=== PATIENT | female | born 1970 | race Caucasian/White ===

== ENCOUNTER → 2017-01-17 | Outpatient (CLI) | payer OTHER ==
[~2017-01-17] MED LIST: ACET250T3 PO; ASP81CT PO; BUPR300T PO; CHOL100011 PO; DEXL60CA PO; DEXL60CA5 PO; EST.1TD TOP; ESTR1TAB24 PO; HYDR-3583 PO; IBP600T1 PO; KRIL1CAP2 PO; LSRT50T PO; OMEG1CAP24 PO; OMEP1CAP18 PO; OMG1KC PO; PANT40TA PO; POTA8TAB6 PO; SCR1T PO; TRIA1TAB5 PO; VIT D; VITA150T PO
--- NOTE | 2017-01-20 13:35 | Diagnostic Imaging Report ---
Bilateral screening mammogram. The current study was also evaluated with a Computer Aided Detection (CAD) system. INDICATION: Screening. No current complaints stated on the questionnaire. COMPARISON: 12/04/2015 FINDINGS: The breasts are composed of heterogeneously dense parenchyma which may decrease mammographic sensitivity. Benign-appearing calcifications are seen. There is no mass, architectural distortion, or suspicious cluster of calcification noted. Allowing for technique and positional differences, no suspicious change is seen. IMPRESSION: Dense breasts with no definite change. ACR BI-RADS Category 2: Benign findings. Result letter will be mailed to the patient. Note: At least 10% of breast cancer is not imaged by mammography. Dictated by: Dictated on workstation # [id number]
== END | disposition home or self-care (01) ==
LOC: RAD 09:17
PROVIDERS: ATTEND Family Medicine
DX: Z12.31 Encounter for screening mammogram for malignant neoplasm of breast (principal)
CPT/HCPCS: 77067

== ENCOUNTER → 2017-08-08 | Outpatient (CLI) | payer OTHER ==
--- NOTE | 2017-08-08 18:42 | Diagnostic Imaging Report ---
INDICATION: LAP-BAND 5 years ago. Abdominal pain. FINDINGS: 3 views show LAP-BAND present appearing in good position. The tubing appears intact to the injection port. Lung bases are clear. Stomach and small bowel are not distended. There is a moderate amount of stool in the right side of colon with very little stool through the transverse and descending colon. No organomegaly. No pathologic calcification. IMPRESSION: Moderate amount of stool in the ascending colon otherwise negative abdomen series. Dictated on workstation # [id number]
== END ==
LOC: RAD 11:55
PROVIDERS: ATTEND Nurse Practitioner Family
DX: R10.9 Unspecified abdominal pain (principal); Z98.84 Bariatric surgery status
CPT/HCPCS: 74020

== ENCOUNTER → 2018-03-19 | Outpatient (CLI) | payer OTHER ==
--- NOTE | 2018-03-19 12:52 | Diagnostic Imaging Report ---
INDICATION: Routine screening. Comparison is made with prior exams from 01/17/2017 and 12/04/2015. 2-D and 3-D bilateral screening mammography was performed. The current study was also evaluated with a Computer Aided Detection (CAD) system. FINDINGS: Both breasts remain heterogeneously dense, limiting the sensitivity of mammography. The parenchymal pattern is stable. No dominant mass or malignant-appearing microcalcifications are seen. The axillae are unremarkable. IMPRESSION: No mammographic features suspicious for malignancy are identified. ACR BI-RADS Category 1: Negative. Result letter will be mailed to the patient. Note: At least 10% of breast cancer is not imaged by mammography. Dictated by: Dictated on workstation # [id number]
== END ==
LOC: RAD 07:41
PROVIDERS: ATTEND Family Medicine
DX: Z12.31 Encounter for screening mammogram for malignant neoplasm of breast (principal)
CPT/HCPCS: 77067

== ENCOUNTER → 2019-11-26 | Outpatient (CLI) | payer OTHER ==
--- NOTE | 2019-11-26 09:11 | Diagnostic Imaging Report ---
PROCEDURE: MR imaging of the brain without contrast. TECHNIQUE: Multiplanar, multisequence MR imaging of the brain was performed without contrast. INDICATION: Intracranial hypertension. CORRELATION is made with prior MRI brain from 07/06/2012. The ventricular size and sulcal pattern are normal. Previously noted T2 hyperintense foci in bilateral frontal lobes appears similar to prior exam. These remain nonspecific. No acute intra-axial or extra-axial hemorrhage is detected. Corpus callosum is unremarkable. The sella and parasellar structures are unremarkable. No diffusion abnormality is identified to suggest acute ischemia. The normal expected flow-voids within the carotid siphons are noted. IMPRESSION: Stable noncontrast MRI of the brain when compared with the exam from 07/06/2012. T2 hyperintense foci of bilateral frontal lobes appears stable. No acute intracranial process is detected. Dictated by: Dictated on workstation # [id number]
== END ==
LOC: RAD 07:50
PROVIDERS: ATTEND Psychiatry & Neurology Neurology
DX: G93.2 Benign intracranial hypertension (principal)
CPT/HCPCS: 70551

== ENCOUNTER → 2020-05-19 | Outpatient (CLI) | payer OTHER ==
--- NOTE | 2020-05-19 14:56 | Diagnostic Imaging Report ---
INDICATION: Routine screening. Comparison is made to prior mammogram 03/19/2018 and 01/17/2017. 2-D and 3-D bilateral screening mammography was performed with CAD. Both breasts are heterogeneously dense, limiting the sensitivity of mammography. No mass or malignant appearing microcalcifications are seen. There are scattered benign calcifications in both breasts. The axillae are unremarkable. IMPRESSION: BI-RADS Category 2 No mammographic features suspicious for malignancy are identified. ACR BI-RADS Category 2: Benign findings. Result letter will be mailed to the patient. Note: At least 10% of breast cancer is not imaged by mammography. Dictated by: Dictated on workstation # [id number]
== END ==
LOC: RAD 10:15
PROVIDERS: ATTEND Family Medicine
DX: Z12.31 Encounter for screening mammogram for malignant neoplasm of breast (principal)
CPT/HCPCS: 77063; 77067

== ENCOUNTER 2020-08-07 05:30 | Outpatient (RCR) | payer OTHER ==
[~2020-08-07] VITALS: Ht 170.2 cm; Wt 83.2 kg
[~2020-08-07 05:30] MED LIST changes: +BIOT5000 PO; +BUPR300T98 PO; +CHOL200014 PO; +PANT40TA52 PO; +POTA8CAP20 PO; +PROG100C11 PO; +SPIR25TA5 PO; +TEMA15CA PO
== END 2020-08-07 10:18 | disposition home or self-care (01) ==
LOC: PREOP 05:30
PROVIDERS: ATTEND Surgery
DX: Z01.818 Encounter for other preprocedural examination (principal); Z12.11 Encounter for screening for malignant neoplasm of colon; Z20.828 Contact with and (suspected) exposure to other viral communicable diseases
CPT/HCPCS: 87635

== ENCOUNTER 2020-08-09 09:01 | Day surgery (SDC) | payer OTHER ==
--- NOTE | 2020-07-31 07:27 | HISTORY AND PHYSICAL ---
DATE OF SERVICE: ATTENDING PRIMARY CARE Larissa Kiran DO PROCEDURE DATE: 08/09/2020. HISTORY OF PRESENT ILLNESS: The patient is a 49-year-old female who is known to us. She has a history of morbid obesity and medical comorbidities related to obesity including hypertension, obstructive sleep apnea, lower extremity edema, degenerative joint disease of the low back and knees and urinary stress incontinence. She is status post laparoscopic adjustable gastric band placement with an APS band on 07/20/2010 by us. On today's visit, she reports that she is in need of a screening colonoscopy. She reports she has never had one done before and denies any issues with any diarrhea or constipation as well as no blood in her stool. She also denies any family history of any colon cancer. PAST MEDICAL HISTORY: Morbid obesity, sleep apnea, hypertension, lower extremity edema, degenerative joint disease of the back and knees. PAST SURGICAL HISTORY: Vaginal hysterectomy in 2003 with bladder suspension, left breast biopsy in 1989, which was benign and open appendectomy in 1988. ALLERGIES: No known drug allergies. MEDICATIONS: Spironolactone, potassium, Wellbutrin, Protonix, Acetazolamide. SOCIAL HISTORY: Negative for smoking, negative for alcohol. FAMILY HISTORY: Mother with malignant spinal cord tumor. Maternal grandmother with myocardial infarction in her 50s, stroke in her 70s. Maternal grandfather, lung cancer. VITAL SIGNS: Blood pressure 131/92. Current weight 183 pounds, 5 feet 7 inches. REVIEW OF SYSTEMS: This is a well-nourished female in no acute distress. She is not experiencing any shortness of breath or difficulty breathing. No chest pain, palpitations or diaphoresis. No nausea, vomiting or abdominal pain. No diarrhea or constipation. No red blood per rectum. No dark tarry stools. No fever or chills. No recent inadvertent weight loss. All other review of systems negative. PHYSICAL EXAMINATION: CHEST: Clear. Good breath sounds bilaterally. HEART: Regular, no murmurs. EXTREMITIES: No lower extremity edema. Negative Homans sign. HEENT: No scleral icterus. NECK: No cervical lymphadenopathy. ABDOMEN: Soft, nontender, nondistended. SKIN: Warm, dry and pink. NEUROLOGIC: Awake, alert and oriented x3. ASSESSMENT AND PLAN: A 49-year-old female who is in need of a screening colonoscopy. The risks and benefits of the procedure as well as the procedure and home care instructions were explained to the patient. The patient verbalized understanding of instructions and agrees to proceed as planned. At this time, we will proceed with scheduling the patient for a screening colonoscopy. Job ID: [id number] DocumentID: [id number] Dictated Date: 07/21/2020 09:06:09 Scrummaster Date: 07/21/2020 12:37:10 Dictated By: SAMIRA ELLSWORTH APRN
[~2020-08-09] VITALS: Ht 170.2 cm; Wt 83.2 kg
[2020-08-09] VITALS (14 sets, daily range): BP systolic 106–133; BP diastolic 61–87
[2020-08-09] MEDS ORDERED: LACTATED RINGERS 1,000 ML IV ONE (09:12)
[2020-08-09] MEDS ORDERED: MIDAZOLAM 5 MG/5 ML (VERSED) VIAL IV ONE (09:15)
[2020-08-09] MEDS ORDERED: fentaNYL INJECTION 100 MCG/2 ML AMP IVP ONE (09:15)
[2020-08-09] MEDS ORDERED: NS IV 500 ML 500 ML IV PRN (09:15)
[2020-08-09] MEDS ORDERED: LIDOCAINE JELLY 2% 6 ML SYRINGE TOP ONE (09:30)
--- NOTE | 2020-08-09 10:09 | Conscious Sedation/ASA ---
Conscious Sedation Pre-Proced Time 10:00 ASA Score 2 For ASA 3 and 4: Consider anesthesia and medical clearance. Also, for patients with a history of failed moderate sedation consider anesthesia. Airway Lungs Heart ASA score ASA 1: a normal healthy patient ASA 2: a patient with a mild systemic disease (mid diabetes, controlled hypertension, obesity ASA 3: a patient with a severe systemic disease that limits activity (angina, COPD, prior Myocardial infarction) ASA 4: a patient with an incapacitating disease that is a constant threat to life (CHF, renal failure) ASA 5: a moribund patient not expected to survive 24 hrs. (ruptured aneurysm) ASA 6: a declared brain- patient whose organs are being harvested. For emergent operations, add the letter E after the classification Mallampati Classification Grade 2 Sedation Plan Analgesia, Amnesia, Plan communicated to team members, Discussed options with patient/fam, Discussed risks with patient/fam The patient is an appropriate candidate to undergo the planned procedure, sedation, and anesthesia. The patient immediately re-assessed prior to indication. LEAH JARAMILLO MD Aug 09, 2020 10:09
--- NOTE | 2020-08-09 10:10 | Progress Note-Pre Operative ---
Pre-Operative Progress Note H&P Reviewed The H&P was reviewed, patient examined and no changes noted. Date Seen by Provider: Aug 09, 2020 Time Seen by Provider: 10:00 Date H&P Reviewed: Aug 09, 2020 Time H&P Reviewed: 10:00 Pre-Operative Diagnosis: screening LEAH Cheng MD Aug 09, 2020 10:10
--- NOTE | 2020-08-09 10:11 | Discharge Inst-Surgical ---
D/C Lap Instructions-ELLA Follow Up Activity as tolerated High Fiber Diet 25g or more per day Avoid Alcohol, Caffeine, Spicy [place] and Acid foods. Drink 64 fluid oz or more of fluids per day. Symptoms to Report: Fever over 101 degree F, Nausea/Vomiting If any problems/questions: Contact your physician or go to Emergency Room LEAH JARAMILLO MD Aug 09, 2020 10:11
[2020-08-09] MEDS ORDERED: HYDROcodone/APAP 5 MG/325 MG (LORTAB) TAB PO PRN (10:15)
[2020-08-09] MEDS ORDERED: ONDANSETRON 4 MG/2 ML (SDV) Z0FRAN IVP PRN (10:15)
[2020-08-09] MEDS ORDERED: morphine INJ 10 MG/ML 1ML (SYR OR VIAL) IVP PRN ×2 (10:15)
[2020-08-09] MEDS ORDERED: ACETAMINOPHEN 325 MG TABLET PO PRN (10:15)
[2020-08-09] MEDS ORDERED: LIDOCAINE JELLY 2% 6 ML SYRINGE ONE (10:48)
[2020-08-09] MEDS ORDERED: fentaNYL INJECTION 100 MCG/2 ML AMP ONE ×2 (10:49→10:50)
[2020-08-09] MEDS ORDERED: MIDAZOLAM 5 MG/5 ML (VERSED) VIAL ONE ×2 (10:49)
--- NOTE | 2020-08-09 11:32 | Progress Note-Post Operative ---
Post-Operative Progess Note Surgeon (s)/Hospice Community Liaison (s) Surgeon LEAH JARAMILLO MD Hospice Community Liaison: none Pre-Operative Diagnosis screening colo Post-Operative Diagnosis normal colon and rectum Procedure & Operative Findings Date of Procedure 08/09/20 Procedure Performed/Findings colonoscopy Anesthesia Type cs Estimated Blood Loss Estimated blood loss (mL): minimal Specimens/Packing Specimens Removed none LEAH JARAMILLO MD Aug 09, 2020 11:32
--- NOTE | 2020-08-09 18:58 | OPERATIVE REPORT ---
DATE OF SERVICE: 08/09/2020 PREOPERATIVE DIAGNOSIS: Screening colonoscopy. POSTOPERATIVE DIAGNOSES: Normal colon and rectum. PROCEDURE: Colonoscopy. SURGEON: Dr. Leah Jaramillo. ANESTHESIA: Conscious sedation. ESTIMATED BLOOD LOSS: Minimal. FINDINGS: Normal colon and rectum. DISPOSITION: The patient tolerated the procedure well. INDICATIONS: The patient is a 49-year-old female known to us. She does have a history of hypertension, sleep apnea, lower extremity edema as well as degenerative joint disease. However, these medical issues have improved with weight loss. She is in need of a screening colonoscopy. She does not report any major issues with diarrhea nor constipation as well as no red blood per rectum nor any dark tarry stools. She also does not report any family history of colon cancer. DESCRIPTION OF PROCEDURE: The patient was brought to the endoscopy suite, laid in the left lateral decubitus position. After adequate IV pain and sedative medications in conscious sedation anesthesia. The digital rectal examination was performed, which revealed mild chronic stage I external and internal hemorrhoids, not actively edematous nor plan and no bleeding. Normal speech was consulted and there were no palpable masses. The endoscope was then intubated into the anus and rectum gently insufflated. The endoscope was then advanced into the valve of Mcdaniel of the rectum with no polyps or neoplasms identified. We then proceeded through the sigmoid colon, where no diverticulosis identified. The endoscope was then advanced through the remainder of the descending, transverse and ascending colon to the cecum. These segments were normal. There were no polyps or neoplasms identified throughout the colon or rectum. Endoscope was then slowly withdrawn while taking a second look and suctioned residual air with no additional findings. The patient tolerated the procedure well. We will recommend medical management with a high fiber diet with at least 25 grams of fiber daily as well as significant amounts of water to promote soft stools on a daily basis. If she is asymptomatic, she does not need another colonoscopy for another 10 years. Job ID: [id number] DocumentID: [id number] Dictated Date: 08/09/2020 11:29:07 Garment Examiner Date: 08/09/2020 18:56:51 Dictated By: LEAH JARAMILLO MD
== END 2020-08-09 12:20 | disposition home or self-care (01) ==
LOC: ENDO 09:01
PROVIDERS: ATTEND Surgery
DX: Z12.11 Encounter for screening for malignant neoplasm of colon (principal); K64.0 First degree hemorrhoids; I10 Essential (primary) hypertension; G47.33 Obstructive sleep apnea (adult) (pediatric); M17.10 Unilateral primary osteoarthritis, unspecified knee; E66.01 Morbid (severe) obesity due to excess calories; Z68.28 Body mass index [BMI] 28.0-28.9, adult; Z79.899 Other long term (current) drug therapy; Z90.710 Acquired absence of both cervix and uterus

== ENCOUNTER → 2021-05-28 | Outpatient (CLI) | payer OTHER ==
--- NOTE | 2021-05-28 14:12 | Diagnostic Imaging Report ---
Digital mammogram. INDICATION: Bilateral screening This study was compared to the prior exam of 05/19/2020, 03/19/2018 and 01/17/2017. At this time there are no current complaints. The current study was also evaluated with a Computer Aided Detection (CAD) system. FINDINGS: The fibroglandular tissue in both breasts is heterogeneously dense. This does limit the sensitivity of this exam. Overall, there does not appear to have been any significant change when compared to the prior study. No primary or secondary sign of malignancy is noted. IMPRESSION: There is no radiographic evidence for malignancy. ACR BI-RADS Category 1: Negative. Result letter will be mailed to the patient. Note: At least 10% of breast cancer is not imaged by mammography. Dictated by: Dictated on workstation # [id number]
== END ==
LOC: RAD 08:15
PROVIDERS: ATTEND Family Medicine
DX: Z12.31 Encounter for screening mammogram for malignant neoplasm of breast (principal)
CPT/HCPCS: 77063; 77067

== ENCOUNTER 2022-04-05 13:37 | Emergency (ER) | payer OTHER ==
[~2022-04-05] VITALS: Ht 162.6 cm; Wt 72.6 kg
[~2022-04-05 13:37] MED LIST changes: -CHOL200014 PO; +CHOL200052 PO
[2022-04-05] MEDS ORDERED: fentaNYL INJ 100 MCG/2 ML AMP IVP ONE (14:45)
[2022-04-05] MEDS ORDERED: LACTATED RINGERS 1,000 ML IV ONE (14:45)
[2022-04-05] MEDS ORDERED: ONDANSETRON 4 MG/2 ML (SDV) Z0FRAN IVP ONE (14:45)
[2022-04-05 15:26] LABS: BASOPHILS % (AUTO) 0 % (0-10); EOSINOPHILS # (AUTO) 0.1 10^3/uL (0.0-0.3); EOSINOPHILS % (AUTO) 1 % (0-10); HEMATOCRIT 39 % (35-52); HEMOGLOBIN 13.1 g/dL (11.5-16.0); LYMPHOCYTES # (AUTO) 0.9 X 10^3 (1.0-4.0); LYMPHOCYTES % (AUTO) 8 % (12-44); MEAN CORPUSCULAR HEMOGLOBIN 29 pg (25-34); MEAN CORPUSCULAR HGB CONC 33 g/dL (32-36); MEAN CORPUSCULAR VOLUME 88 fL (80-99); MEAN PLATELET VOLUME 9.9 fL (9.0-12.2); MONOCYTES # (AUTO) 0.4 X 10^3 (0.0-1.0); MONOCYTES % (AUTO) 3 % (0-12); NEUTROPHILS # (AUTO) 10.9 X 10^3 (1.8-7.8); NEUTROPHILS % (AUTO) 89 % (42-75); PLATELET COUNT 270 10^3/uL (130-400); WHITE BLOOD COUNT 12.3 10^3/uL (4.3-11.0)
[2022-04-05 15:36] LABS: ALBUMIN 4.5 GM/DL (3.2-4.5); POTASSIUM 3.5 MMOL/L (3.6-5.0)
[2022-04-05 15:39] LABS: TOTAL PROTEIN 7.6 GM/DL (6.4-8.2)
[2022-04-05 15:41] LABS: BILIRUBIN,TOTAL 0.6 MG/DL (0.1-1.0)
[2022-04-05 15:42] LABS: CREATININE SERUM 1.1 MG/DL (0.60-1.30)
--- NOTE | 2022-04-05 15:42 | Diagnostic Imaging Report ---
PROCEDURE: CT urinary tract, rule out kidney stone. TECHNIQUE: Multiple contiguous axial images were obtained through the abdomen and pelvis without the use of intravenous contrast. Auto Exposure Controls were utilized during the CT exam to meet ALARA standards for radiation dose reduction. INDICATION: Left-sided pain. Patient has history of kidney stones. CORRELATION is made with prior CT from 11/09/2012. Lung bases are clear. Postoperative changes from lap band surgery are identified. The liver and gallbladder are unremarkable. No biliary ductal dilatation is seen. The pancreas and spleen are unremarkable. No adrenal mass is detected. There are bilateral nonobstructing renal calculi. Calculus on the right measures 7 mm. Largest calculus on the left measures 3 mm. There is a 5 mm calculus in the distal left ureter above the UVJ producing significant left-sided hydroureteronephrosis. The right ureter is unremarkable. No bladder calculi are seen. Aorta is nonaneurysmal. Bowel loops are normal caliber. There is no ascites. IMPRESSION: Bilateral nonobstructing nephrolithiasis. In addition, there is a 5 mm distal left ureteric calculus producing significant hydroureteronephrosis. Dictated by: Dictated on workstation # [id number]
[2022-04-05] MEDS ORDERED: KETOROLAC 30 MG/ML VIAL IVP ONE (16:15)
[2022-04-05 16:19] LABS: LYMPHOCYTES % (MANUAL) 13 %; MONOCYTES % (MANUAL) 3 %; NEUTROPHILS % (MANUAL) 84 %
[2022-04-05 16:20] LABS: RBC MORPH NORMAL
[2022-04-05 16:30] LABS: BILIRUBIN,URINE NEGATIVE (NEGATIVE); CLARITY,URINE CLEAR; COLOR,URINE YELLOW; GLUCOSE, URINE (UA) NEGATIVE (NEGATIVE); KETONES,URINE 1+ (NEGATIVE); LEUKOCYTE ESTERASE ,URINE NEGATIVE (NEGATIVE); NITRITE,URINE NEGATIVE (NEGATIVE); PROTEIN,URINE 1+ (NEGATIVE)
[2022-04-05 16:38] LABS: BACTERIA,URINE TRACE /HPF; RBC,URINE >100 /HPF; SQUAMOUS EPITHELIAL CELL,UR RARE /HPF
[2022-04-05 16:39] LABS: AMORPHOUS SEDIMENT,UR MOD AMOR URATES /LPF
--- NOTE | 2022-04-05 17:42 | Diagnostic Imaging Report ---
CLINICAL INDICATION: Patient with abdominal pain. EXAM: X-ray of the abdomen with multiple supine views. COMPARISON: X-ray of the abdomen dated 08/08/2017. FINDINGS: There is a nonobstructed bowel gas pattern. There is no evidence of abdominal free air. Gastric Lap-Band device is again seen. There is a small amount of stool overlying the right colon region. There are no focal calcifications overlying the expected regions/ pathways of both kidneys, ureters, and bladder regions. Phleboliths are seen in the pelvis. The visualized bones and extra abdominal soft tissues are unremarkable. IMPRESSION: There is no radiographic evidence for acute abdominal/ pelvic process or urinary tract stones. Dictated by: Dictated on workstation # [id number]
--- NOTE | 2022-04-05 17:46 | ED Abdominal Pain ---
General Chief Complaint: Back Problems Stated Complaint: BACK/ABD PAIN, Source of Information: Patient Exam Limitations: No Limitations History of Present Illness Date Seen by Provider: Apr 05, 2022 Time Seen by Provider: 13:47 Initial Comments This 51-year-old woman presents to the emergency room in distress from left flank pain that became severe this morning. She has had hematuria x1 week and started an outpatient work-up. She had a CT scheduled today but could not tolerate her symptoms and therefore came to the emergency room. She is on her hands and knees in the exam bed in distress with emesis in a basin during my initial interview. Her primary care provider is Dr. Kiran. Allergies and Home Medications Allergies Coded Allergies: No Known Drug Allergies (Unverified , 07/20/10) Patient Home Medication List Home Medication List Reviewed: Yes Acetazolamide (Acetazolamide) 250 Mg Tablet, 250 MG PO DAILY, (Reported) Entered as Reported by: OLMAN MULLIGAN on 08/02/20 153 Biotin (Biotin) 5,000 Mcg Tab.rapdis, 5,000 MCG PO DAILY, (Reported) Entered as Reported by: OLMAN MULLIGAN on 08/02/20 153 Bupropion HCl (Bupropion Xl) 300 Mg Tab.er.24h, 300 MG PO DAILY, (Reported) Entered as Reported by: OLMAN MULLIGAN on 08/02/201538 Cephalexin (Cephalexin) 500 Mg Tablet, 500 MG PO TID Prescribed by: BLANCHE BURNETT on 04/05/221751 Cholecalciferol (Vitamin D3) (Vitamin D3) 50 Mcg Tablet, 50 MCG PO DAILY, (Reported) Entered as Reported by: OLMAN MULLIGAN on 08/02/201538 Hydrocodone/Acetaminophen (Hydrocodone-Acetamin 5-325 mg) 5 Mg-325 Mg Tablet, 1- 2 TAB PO Q4H PRN for PAIN-MODERATE (5-7) Prescribed by: BLANCHE BURNETT on 04/05/221751 Ondansetron (Ondansetron Odt) 4 Mg Tab.rapdis, 4 MG SL Q4H PRN for NAUSEA/VOMITING Prescribed by: BLANCHE BURNETT on 04/05/221751 Pantoprazole Sodium (Pantoprazole Sodium) 40 Mg Tablet.dr, 40 MG PO DAILY, (Reported) Entered as Reported by: OLMAN MULLGIAN on 08/02/201538 Potassium Chloride (Potassium Chloride) 8 Meq Capsule.er, 8 MEQ PO DAILY, (Reported) Entered as Reported by: OLMAN MULLIGAN on 08/02/201538 Progesterone,Micronized (Progesterone) 100 Mg Capsule, 100 MG PO HS, (Reported) Entered as Reported by: OLMAN MULLIGAN on 08/02/201538 Spironolactone (Spironolactone) 25 Mg Tablet, 25 MG PO DAILY, (Reported) Entered as Reported by: OLMAN MULLIGAN on 08/02/201538 Temazepam (Temazepam) 15 Mg Capsule, 15 MG PO HS PRN for SLEEP, (Reported) Entered as Reported by: OLMAN MULLIGAN on 08/02/201538 Review of Systems Review of Systems Constitutional: no symptoms reported EENTM: No Symptoms Reported Respiratory: No Symptoms Reported Cardiovascular: No Symptoms Reported Gastrointestinal: See HPI Genitourinary: See HPI Musculoskeletal: no symptoms reported Skin: no symptoms reported Psychiatric/Neurological: No Symptoms Reported Endocrine: No Symptoms Reported Hematologic/Lymphatic: No Symptoms Reported Past Poldrjv-Fltxyq-Dlxkot Hx Patient Social History Tobacco Use?: No Use of E-Cig and/or Vaping dev: No Substance use?: No Alcohol Use?: Yes Alcohol Frequency: Once in a while Immunizations Up To Date Tetanus Booster (TDap): Unknown Seasonal Allergies Seasonal Allergies: Yes Past Medical History Surgeries: Yes (left breast lumpectomy, lap band) Appendectomy, Hysterectomy, Oophorectomy, Tonsillectomy Respiratory: No Cardiac: No Neurological: No Reproductive Disorders: Yes (hysterectomy, ) Female Reproductive Disorders: Ovarian Cyst [employer] History: Hysterectomy Sexually Transmitted Disease: No Genitourinary: No Gastrointestinal: Yes Gastroesophageal Reflux, Chronic Constipation Musculoskeletal: No Endocrine: No HEENT: No Cancer: No Psychosocial: Yes Depression Integumentary: No Blood Disorders: No Family Medical History Cardiovascular disease 19 FATHER 19 MOTHER Diabetes mellitus 19 MOTHER Cancer Physical Exam Vital Signs Vital Signs - First Documented 04/05/22 04/05/22 13:40 18:08 Temp 37.2 Pulse 103 Resp 17 B/P (MAP) 144/92 (109) Pulse Ox 99 O2 Delivery Room Air Capillary Refill : Height/Weight/BMI Height: 5'6.50" Weight: 171lbs. 6.0oz. 77.381005ot; 28.72 BMI Method:Stated General Appearance: WD/WN, moderate distress HEENT: normal ENT inspection Neck: normal inspection Respiratory: lungs clear, normal breath sounds, no respiratory distress Cardiovascular: regular rate, rhythm, no edema, no murmur Gastrointestinal: soft; No distended Extremities: normal inspection Neurologic/Psychiatric: alert, normal mood/affect, oriented x 3 Skin: normal color, warm/dry Progress/Results/Core Measures Results/Orders Lab Results Laboratory Tests Test 04/05/22 15:17 04/05/22 16:25 Range/Units White Blood Count 12.3 H 4.3-11.0 10^3/uL Red Blood Count 4.45 3.80-5.11 10^6/uL Hemoglobin 13.1 11.5-16.0 g/dL Hematocrit 39 35-52 % Mean Corpuscular Volume 88 80-99 fL Mean Corpuscular Hemoglobin 29 25-34 pg Mean Corpuscular Hemoglobin Concent 33 32-36 g/dL Red Cell Distribution Width 13.1 10.0-14.5 % Platelet Count 270 130-400 10^3/uL Mean Platelet Volume 9.9 9.0-12.2 fL Immature Granulocyte % (Auto) 0 % Neutrophils (%) (Auto) 89 H 42-75 % Lymphocytes (%) (Auto) 8 L 12-44 % Monocytes (%) (Auto) 3 0-12 % Eosinophils (%) (Auto) 1 0-10 % Basophils (%) (Auto) 0 0-10 % Neutrophils # (Auto) 10.9 H 1.8-7.8 X 10^3 Lymphocytes # (Auto) 0.9 L 1.0-4.0 X 10^3 Monocytes # (Auto) 0.4 0.0-1.0 X 10^3 Eosinophils # (Auto) 0.1 0.0-0.3 10^3/uL Basophils # (Auto) 0.0 0.0-0.1 10^3/uL Immature Granulocyte # (Auto) 0.0 0.0-0.1 10^3/uL Neutrophils % (Manual) 84 % Lymphocytes % (Manual) 13 % Monocytes % (Manual) 3 % Blood Morphology Comment NORMAL Sodium Level 143 135-145 MMOL/L Potassium Level 3.5 L 3.6-5.0 MMOL/L Chloride Level 110 H 98-107 MMOL/L Carbon Dioxide Level 22 21-32 MMOL/L Anion Gap 11 5-14 MMOL/L Blood Urea Nitrogen 17 7-18 MG/DL Creatinine 1.10 0.60-1.30 MG/DL Estimat Glomerular Filtration Rate 61 BUN/Creatinine Ratio 15 Glucose Level 142 H 70-105 MG/DL Calcium Level 9.0 8.5-10.1 MG/DL Corrected Calcium 8.6 8.5-10.1 MG/DL Total Bilirubin 0.6 0.1-1.0 MG/DL Aspartate Amino Transf (AST/SGOT) 13 5-34 U/L Alanine Aminotransferase (ALT/SGPT) 15 0-55 U/L Alkaline Phosphatase 46 40-136 U/L Total Protein 7.6 6.4-8.2 GM/DL Albumin 4.5 3.2-4.5 GM/DL Lipase 16 8-78 U/L Urine Color YELLOW Urine Clarity CLEAR Urine pH 7.0 5-9 Urine Specific [place] 1.015 L 1.016-1.022 Urine Protein 1+ H NEGATIVE Urine Glucose (UA) NEGATIVE NEGATIVE Urine Ketones 1+ H NEGATIVE Urine Nitrite NEGATIVE NEGATIVE Urine Bilirubin NEGATIVE NEGATIVE Urine Urobilinogen 0.2 < = 1.0 MG/DL Urine Leukocyte Esterase NEGATIVE NEGATIVE Urine RBC (Auto) 3+ H NEGATIVE Urine RBC >100 H /HPF Urine WBC NONE /HPF Urine Squamous Epithelial Cells RARE /HPF Urine Crystals PRESENT H /LPF Urine Amorphous Sediment MOD ROLAND URATES H /LPF Urine Bacteria TRACE /HPF Urine Casts NONE /LPF Urine Mucus NEGATIVE /LPF Urine Culture Indicated NO My Orders Orders - BLANCHE BELLO MD Ed Iv/Invasive Line Start (04/05/22 14:38) Lactated Ringers (Lr 1000 Ml Iv Solution (04/05/22 14:45) Ondansetron Injection (Zofran Injectio (04/05/22 14:45) Fentanyl Inj (Sublimaze Injection) (04/05/22 14:45) Cbc With Automated Diff (04/05/22 14:38) Comprehensive Metabolic Panel (04/05/22 14:38) Lipase (04/05/22 14:38) Ua Culture If Indicated (04/05/22 14:38) Ct Abd/Pelvis Wo(Kidney Stone) (04/05/22 14:47) Manual Differential (04/05/22 15:17) Ketorolac Injection (Toradol Injection) (04/05/22 16:15) Abdomen/Kub 1view (04/05/22 17:27) Medications Given in ED Vital Signs/I&O 04/05/22 04/05/22 13:40 18:08 Temp 37.2 Pulse 103 67 Resp 17 16 B/P (MAP) 144/92 (109) 147/8 Pulse Ox 99 O2 Delivery Room Air Room Air Progress Progress Note : Progress Note Ureteral stone was suspected. Patient was treated accordingly with the meds listed. She had marked improvement in her symptoms. A distal left ureteral stone measuring 5 mm was identified on CT scan. I discussed with Dr. Henley. He recommended that she contact the clinic on Friday for follow-up. See discharge instructions. Diagnostic Imaging Diagonstic Imaging: CT Plain Films/CT/US/NM/MRI: abdomen, pelvis Comments CT abdomen and pelvis viewed by me and report reviewed. See report below: NAME: JUSTINE ARMENDARIZ [facility] REC#: [id number] PT STATUS: REG ER : 1970 PHYSICIAN: BLANCHE BELLO MD ADMIT DATE: 04/05/22/ER Signed Date of Exam:04/05/22 CT ABD/PELVIS WO(KIDNEY STONE) PROCEDURE: CT urinary tract, rule out kidney stone. TECHNIQUE: Multiple contiguous axial images were obtained through the abdomen and pelvis without the use of intravenous contrast. Auto Exposure Controls were utilized during the CT exam to meet ALARA standards for radiation dose reduction. INDICATION: Left-sided pain. Patient has history of kidney stones. CORRELATION is made with prior CT from 11/09/2012. Lung bases are clear. Postoperative changes from lap band surgery are identified. The liver and gallbladder are unremarkable. No biliary ductal dilatation is seen. The pancreas and spleen are unremarkable. No adrenal mass is detected. There are bilateral nonobstructing renal calculi. Calculus on the right measures 7 mm. Largest calculus on the left measures 3 mm. There is a 5 mm calculus in the distal left ureter above the UVJ producing significant left-sided hydroureteronephrosis. The right ureter is unremarkable. No bladder calculi are seen. Aorta is nonaneurysmal. Bowel loops are normal caliber. There is no ascites. IMPRESSION: Bilateral nonobstructing nephrolithiasis. In addition, there is a 5 mm distal left ureteric calculus producing significant hydroureteronephrosis. Dictated by: Dictated on workstation # [id number] Dict: 04/05/22 1537 Trans: 04/05/22 1555 [facility] [id number] Interpreted by: MARI MATT MD Electronically signed by: MARI MATT MD 04/05/22 1553 Diagonstic Imaging: Xray Plain Films/CT/US/NM/MRI: abdomen, pelvis Comments NAME: JUSTINE ARMENDARIZ [facility] REC#: [id number] PT STATUS: DEP ER : 1970 PHYSICIAN: BLANCHE BELLO MD ADMIT DATE: 04/05/22/ER Signed Date of Exam:04/05/22 ABDOMEN/KUB 1VIEW CLINICAL INDICATION: Patient with abdominal pain. EXAM: X-ray of the abdomen with multiple supine views. COMPARISON: X-ray of the abdomen dated 08/08/2017. FINDINGS: There is a nonobstructed bowel gas pattern. There is no evidence of abdominal free air. Gastric Lap-Band device is again seen. There is a small amount of stool overlying the right colon region. There are no focal calcifications overlying the expected regions/ pathways of both kidneys, ureters, and bladder regions. Phleboliths are seen in the pelvis. The visualized bones and extra abdominal soft tissues are unremarkable. IMPRESSION: There is no radiographic evidence for acute abdominal/ pelvic process or urinary tract stones. Dictated by: Dictated on workstation # [id number] Dict: 04/05/22 1736 Trans: 04/05/22 1815 [id number] Interpreted by: DARLENE DRAPER MD Electronically signed by: DARLENE DRAPER MD 04/05/22 181 Departure Impression Primary Impression: Ureteral stone Disposition: 01 HOME, SELF-CARE Condition: Improved Departure-Patient Inst. Decision time for Depature: 17:48 Referrals: HERMINIO KIRAN DO (PCP/Family) Primary Care Physician DORIAN DORADO MD Patient Instructions: Kidney Stone, Adult ED Add. Discharge Instructions: Drink plenty of clear liquids to stay well-hydrated. Follow-up with Dr. Dorado or the urologist of your choice next week. Please call Friday morning to schedule an appointment. His number is below. Use hydrocodone as prescribed for pain. Try to avoid use of NSAID medications such as ibuprofen as they may interfere with any procedure you may need to help evacuate the stone if it does not pass on its own. Strain your urine to catch any stone or stone fragments that pass. Save these fragments and bring them to your follow-up appointment. Use Zofran (ondansetron) as prescribed for nausea or vomiting. Continue using an antibiotic to prevent infection. Return to the emergency room if you have uncontrolled symptoms despite following these instructions or if you develop new symptoms such as fever. Call with questions or concerns. All discharge instructions reviewed with patient and/or family. Voiced understanding. Scripts Cephalexin (Cephalexin) 500 Mg Tablet 500 MG PO TID, #30 TAB Prov: BLANCHE BELLO MD 04/05/22 Ondansetron (Ondansetron Odt) 4 Mg Tab.rapdis 4 MG SL Q4H PRN for NAUSEA/VOMITING, #10 TAB 1 Refill Prov: BLANCHE BELLO MD 04/05/22 Hydrocodone/Acetaminophen (Hydrocodone-Acetamin 5-325 mg) 5 Mg-325 Mg Tablet 1-2 TAB PO Q4H PRN for PAIN-MODERATE (5-7), #20 TAB Prov: BLANCHE BELLO MD 04/05/22 Copy Copies To 1: DORIAN DORADO MD Copies To 2: HERMINIO KIRAN JOSHUA T MD Apr 05, 2022 17:46
[2022-04-05] MEDS ORDERED: ACHD5005 PO (17:52)
[2022-04-05] MEDS ORDERED: ONDA4TAB11 SL (17:52)
[2022-04-05] MEDS ORDERED: CEPH500T PO (17:52)
[2022-04-05 18:08] VITALS: BP 147/8
== END 2022-04-05 18:07 | disposition home or self-care (01) ==
LOC: EDUNIT# 13:37 → ER 13:38
DX: N20.1 Calculus of ureter (principal); Z28.310 Unvaccinated for COVID-19
CPT/HCPCS: 36415; 74018; 74176; 80053; 81000; 83690; 85007; 85027

== ENCOUNTER → 2022-04-09 | Outpatient (CLI) | payer OTHER ==
[~2022-04-09] MED LIST changes: +ACHD5005 PO; +BIOT10005 PO; +CEPH500T PO; +ONDA4TAB11 SL
--- NOTE | 2022-04-09 17:00 | Diagnostic Imaging Report ---
EXAMINATION: Abdomen 1 view HISTORY: LEFT URETERAL/BILAT RENAL STONES COMPARISON: 04/05/2022 FINDINGS: There is a moderate amount of gas and stool throughout the colon. Nonobstructive bowel gas pattern. No radiopaque foreign body. The lung bases are clear. The osseous structures are intact. Catheter overlies the mid abdomen. IMPRESSION: No obvious renal calculi or other radiopaque foreign body. Moderate stool burden. Dictated by: Dictated on workstation # [id number]
== END ==
LOC: RAD 14:57
PROVIDERS: ATTEND Urology
DX: N20.2 Calculus of kidney with calculus of ureter (principal)
CPT/HCPCS: 74018

== ENCOUNTER 2022-04-11 08:14 | Outpatient (CLI) | payer OTHER ==
[~2022-04-11] VITALS: Ht 170.2 cm; Wt 82.6 kg
[~2022-04-11 08:14] MED LIST changes: -BIOT10005 PO
[2022-04-11] MEDS ORDERED: BIOT10005 PO (12:12)
== END 2022-04-11 12:15 | disposition home or self-care (01) ==
LOC: PREOP 08:14 → EDSTATUS 16:00
PROVIDERS: ATTEND Urology
DX: Z01.818 Encounter for other preprocedural examination (principal)

== ENCOUNTER 2022-04-16 08:27 | Day surgery (SDC) | payer OTHER ==
[2022-04-16] VITALS (9 sets, daily range): BP systolic 106–126; BP diastolic 55–84
[~2022-04-16] VITALS: Ht 170 cm; Wt 82.6 kg
[~2022-04-16 08:27] MED LIST changes: +BIOT10005 PO
[2022-04-16] MEDS ORDERED: cefTRIAXone 1 GM PRE-MIX 50 ML IV ONE (08:30)
[2022-04-16] MEDS ORDERED: LACTATED RINGERS 1,000 ML IV PRN (08:45)
--- NOTE | 2022-04-16 08:53 | Progress Note-Pre Operative ---
Pre-Operative Progress Note Date of Available H&P: Apr 16, 2022 Date H&P Reviewed: Apr 16, 2022 Time H&P Reviewed: 08:53 Changes from last HP none Pre-Operative Diagnosis: RT RENAL STONE DORIAN TAYLOR MD Apr 16, 2022 08:53
[2022-04-16] MEDS ORDERED: HYDROmorphone 2 MG/ML VIAL (DILAUDID) IV ONE (09:00)
[2022-04-16] MEDS ORDERED: morphine INJ 10 MG/ML 1ML (SYR OR VIAL) IVP ONE (09:00)
[2022-04-16] MEDS ORDERED: ONDANSETRON 4 MG/2 ML (SDV) Z0FRAN IVP PRN (09:00)
--- NOTE | 2022-04-16 09:24 | Progress Note-Post Operative ---
Post-Operative Progess Note Surgeon (s)/Sheep Herder (s) Surgeon DORIAN TAYLOR MD Sheep Herder: NONE Pre-Operative Diagnosis RT RENAL STONE Post-Operative Diagnosis SAME Procedure & Operative Findings Date of Procedure 04/16/22 Procedure Performed/Findings RT ESWL Anesthesia Type GENERAL Estimated Blood Loss Estimated blood loss (mL): NONE Specimens/Packing Specimens Removed NONE Packing: NONE DORIAN TAYLOR MD Apr 16, 2022 09:24
--- NOTE | 2022-04-16 09:25 | Discharge Inst-Urology ---
Discharge Inst-Urology Reconcile Patient Problems Problems Reviewed?: Yes Final Diagnosis RT RENAL STONE Patient Instructions/Follow Up Plan/Assessment/Instructions Please make appointment to been seen in office in 3 weeks. KUB prior to it KUB on way home Post ESWL instructions Increase oral fluids for 48 hours and then as needed. Diet and Activity as tolerated. If questions or concerns contact your physician Or seek help at emergency department. DORIAN TAYLOR MD Apr 16, 2022 09:25
--- NOTE | 2022-04-16 11:22 | Diagnostic Imaging Report ---
INDICATION: Lithotripsy COMPARISON: 04/09/2022 TECHNIQUE: 2 radiographs of the abdomen and pelvis dated 04/16/2022. FINDINGS: Catheter related to lap band is again identified with hub overlying the right mid abdomen. 6 mm calcification is noted overlying the central portion of the right renal shadow. No definite calcifications overlying the left renal shadow. Phleboliths are present overlying the pelvis. Previously noted left ureterovesicular junction calculus is not definitely identified. No abnormally dilated loops of bowel. No differential air-fluid levels. No free air. No acute osseous abnormality. IMPRESSION: 6 mm calcification overlying the central right renal shadow felt to relate to a renal calculus. Previously noted left ureterovesicular junction calculus is not definitely identified with several phleboliths present within the lower pelvis. Nonobstructive bowel gas pattern. Dictated by: Dictated on workstation # [id number]
--- NOTE | 2022-04-16 12:48 | Diagnostic Imaging Report ---
INDICATION: Postop lithotripsy. Abdominal film obtained at 12:00 p.m. compared to 08:58 a.m. same day FINDINGS: There are multiple pelvic calcifications which are likely phleboliths, small stones are difficult to exclude. There are no radiopaque calculi overlying the renal shadows. Bowel gas pattern is unremarkable. Laparoscopic band is in place. IMPRESSION: No radiopaque calculi over the renal shadows are identified. Bowel gas pattern is normal. There are multiple pelvic calcifications which are likely phleboliths, small stones are difficult to exclude. Dictated by: Dictated on workstation # [id number]
--- NOTE | 2022-04-16 14:00 | OPERATIVE REPORT ---
DATE OF SERVICE: 04/16/2022 PREOPERATIVE DIAGNOSIS: Right renal stone. POSTOPERATIVE DIAGNOSIS: Right renal stone. OPERATION PERFORMED: Right ESWL. SURGEON: Dr. Taylor. ANESTHESIA: General. COMPLICATIONS: None. DESCRIPTION OF PROCEDURE: Under satisfactory general anesthesia, the patient in supine position on the ESWL table, the right renal stone was localized. Shocks were delivered at kV of 6. After 2000 shocks, we could not visualize the stone anymore. It was well fragmented. The patient received 40 mg of Lasix and 30 mg of Toradol IV. She tolerated the procedure and anesthesia well and was sent to recovery room in stable condition. CC: Dr. Kiran - requested, unable to deliver Job ID: [id number] DocumentID: [id number] Dictated Date: 04/16/2022 09:44:27 Global Director [employer] And Climate Change Date: 04/16/2022 13:59:32 Dictated By: DORIAN TAYLOR MD
--- NOTE | 2022-04-23 13:25 | Anesthesia-General Post-Op ---
General Patient Condition Mental Status/LOC: Same as Preop Cardiovascular: Satisfactory Nausea/Vomiting: Absent Respiratory: Satisfactory Pain: Controlled Complications: Absent Post Op Complications Complications None Follow Up Care/Instructions Patient Instructions None needed. Anesthesia/Patient Condition Patient Condition Patient was seen after the procedure on 04-16 at approximately 1030 and she was doing well, no complaints, stable vital signs, no apparent adverse anesthesia problems. No complications reported per nursing. RAUL BEAR DO Apr 23, 2022 13:24
== END 2022-04-16 12:24 | disposition home or self-care (01) ==
LOC: SDC 08:27
PROVIDERS: ATTEND Urology
DX: N20.0 Calculus of kidney (principal)
CPT/HCPCS: 74018; 87081

== ENCOUNTER → 2022-04-30 | Outpatient (CLI) | payer OTHER ==
--- NOTE | 2022-04-30 16:48 | Diagnostic Imaging Report ---
EXAMINATION: Abdomen 1 view HISTORY: LT URETERAL/ STIVEN RENAL STONES COMPARISON: 04/16/2022 FINDINGS: There is a moderate amount of gas and stool throughout the colon. Calcifications within the stool which limit evaluation. Nonobstructive bowel gas pattern. No radiopaque foreign body. Stable appearance of multiple likely phleboliths within the pelvis. The osseous structures are intact. IMPRESSION: No visualized radiopaque renal calculi. Moderate stool burden. Dictated by: Dictated on workstation # [id number]
== END ==
LOC: RAD 15:51
PROVIDERS: ATTEND Urology
DX: N13.2 Hydronephrosis with renal and ureteral calculous obstruction (principal)
CPT/HCPCS: 74018

== ENCOUNTER → 2023-05-01 | Outpatient (CLI) | payer OTHER ==
--- NOTE | 2023-05-01 10:54 | Diagnostic Imaging Report ---
Indication: Routine screening. Comparison is made with prior mammogram from 05/28/2021 and 05/19/2020. 2-D and 3-D bilateral screening mammography was performed with CAD. The current study was also evaluated with a Computer Aided Detection (CAD) system. Both breasts are heterogeneously dense, limiting the sensitivity of mammography. The parenchymal pattern is stable. No mass or malignant-appearing microcalcifications are seen. There are occasional benign calcifications bilaterally. Axillae are unremarkable. IMPRESSION: BI-RADS Category 2 No mammographic features suspicious for malignancy are identified. ACR BI-RADS Category 2: Benign findings. Result letter will be mailed to the patient. Note: At least 10% of breast cancer is not imaged by mammography. Dictated by: Dictated on workstation # [id number]
== END ==
LOC: RAD 07:53
PROVIDERS: ATTEND Family Medicine
DX: Z12.31 Encounter for screening mammogram for malignant neoplasm of breast (principal)
CPT/HCPCS: 77063; 77067